=== PATIENT | female | born 1930 | race African-American/Black ===

== ENCOUNTER → 2018-03-20 | Outpatient (CLI) | payer OTHER, SELFPAY ==
[~2018-03-20] MED LIST: ALENDRONATE SOD70 MG PO; ASPIR 8181 MG PO; BRILINTA90 MG PO; CARDIZEM CD120 MG PO; HYDROCHLOROTH12.5 M1 PO; LEVOTHYROXIN0.075 MG PO; LISINOPRIL20 MG PO; METOPROLOL TART25 MG PO; NITROGLYCERIN0.4 MG SUBLING; PLAVIX 75 MG TA75 M1 PO; PRAVACHOL40 MG PO; TYLENOL325 MG PO; VITAMIN D1000 UNI1 PO
== END ==
LOC: M.ULTRA 08:32
DX: G45.9 Transient cerebral ischemic attack, unspecified (principal); R09.89 Other specified symptoms and signs involving the circulatory and respiratory systems

== ENCOUNTER → 2018-03-26 | Outpatient (CLI) | payer OTHER, SELFPAY | LOC: M.RAD 16:39 | DX: J98.11 Atelectasis (principal); R05 Cough ==

== ENCOUNTER → 2018-10-25 | Outpatient (CLI) | payer OTHER, SELFPAY | LOC: M.RAD 13:06 | DX: I51.7 Cardiomegaly (principal); J98.4 Other disorders of lung ==

== ENCOUNTER → 2019-08-23 | Outpatient (CLI) | payer OTHER | LOC: M.RAD 12:00 | DX: I51.7 Cardiomegaly (principal) ==

== ENCOUNTER → 2020-05-04 | Outpatient (CLI) | payer OTHER | LOC: M.ULTRA 09:40 | PROVIDERS: ATTEND Family Medicine | DX: I51.7 Cardiomegaly (principal); J84.9 Interstitial pulmonary disease, unspecified; R22.2 Localized swelling, mass and lump, trunk; Z87.891 Personal history of nicotine dependence ==

== ENCOUNTER → 2020-07-23 | Outpatient (CLI) | payer OTHER | LOC: M.ULTRA 09:00 | PROVIDERS: ATTEND Internal Medicine Cardiovascular Disease | DX: I65.23 Occlusion and stenosis of bilateral carotid arteries (principal) ==

== ENCOUNTER 2021-01-27 12:06 | Emergency (ER) | payer OTHER ==
[~2021-01-27] VITALS: Ht 152.4 cm; Wt 54.4 kg
[2021-01-27] MEDS ORDERED: CARVEDILOL25 MG PO (12:18)
[2021-01-27] MEDS ORDERED: NORVASC5 MG PO (12:18)
[2021-01-27] MEDS ORDERED: HYDRALAZINE 2525 MG PO (12:19)
[2021-01-27] MEDS ORDERED: IMDUR 60 MG TAB60 M1 PO (12:19)
[2021-01-27] MEDS ORDERED: LISINOPRIL-HCT1 EAC1 PO (12:20)
[2021-01-27 12:43] LABS: ABSOLUTE BASOPHILS 0.1 thou/uL (0.0-0.2); ABSOLUTE EOSINOPHILS 0.2 thou/uL (0.0-0.7); ABSOLUTE LYMPHOCYTES 1.7 thou/uL (0.8-5.3); ABSOLUTE NEUTROPHILS 7.7 thou/uL (1.6-8.1); BASOPHILS 0.6 %; EOSINOPHILS 1.9 %; HEMATOCRIT 32.6 % (37.0-47.0); HEMOGLOBIN 11.1 gm/dL (12.0-15.0); LYMPHOCYTES 15.7 %; MCH 30.6 pg (26.0-34.0); MCHC 33.9 g/dL (28.0-37.0); MCV 90.3 fL (80.0-100.0); MONOCYTES 9.7 %; MPV 7.8 fl. (7.2-11.1); NUCLEATED RBCS 0 /100WBC; PLATELET COUNT* 253 thou/uL (150-400); POLYS 72.1 %; RBC 3.61 mil/uL (4.20-5.00); RDW-CV 15.1 % (10.5-14.5); WBC 10.7 thou/uL (4.0-11.0)
[2021-01-27 12:57] LABS: CALCIUM 9.6 mg/dL (8.5-10.1); CREATININE 1.4 mg/dL (0.6-1.3); POTASSIUM 4.1 mmol/L (3.5-5.1)
[2021-01-27 13:01] LABS: ALBUMIN 3.7 g/dL (3.4-5.0); TOTAL BILIRUBIN 0.4 mg/dL (<0.1-1.0); TOTAL PROTEIN 7.8 g/dL (6.4-8.2)
--- NOTE | 2021-01-27 15:35 | EKG ---
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1930 Requested By: Eleuterio Gaspar Order Number: [id number] MD: Roberto Webster Measurements Intervals [place] Rate: 54 P: 67 PA: 191 QRS: -7 QRSD: 90 T: 35 QT: 438 QTc: 416 Interpretive Statements Sinus rhythm Probable left atrial enlargement Probable left ventricular hypertrophy Baseline wander in lead(s) II Compared to ECG 05/03/2017 12:43:47 No significant changes Electronically Signed On 01-27-2021 15:35:07 CDT by Roberto Webster [email or web address] <ELECTRONICALLY SIGNED> By: Roberto Webster MD, [facility] 01/27/21 1535 1232 1232 Roberto Webster MD, [facility] /EPI
[2021-01-27 15:41] LABS: URINE BILIRUBIN NEGATIVE (Negative); URINE BLOOD NEGATIVE (Negative); URINE CLARITY CLEAR; URINE COLOR YELLOW; URINE GLUCOSE-RANDOM NEGATIVE (Negative); URINE KETONES NEGATIVE (Negative); URINE LEUKOCYTES-REFLEX NEGATIVE (Negative); URINE NITRITE-REFLEX NEGATIVE (Negative); URINE PROTEIN NEGATIVE (Negative); URINE UROBILINOGEN 0.2 E.U./dl (0.2-1.0)
[2021-01-27 16:23] VITALS: BP 172/55
== END 2021-01-27 16:24 | disposition home or self-care (01) ==
LOC: M.ERS 12:06
PROVIDERS: Nurse Practitioner Psychiatric/Mental Health
DX: S01.91XA Laceration without foreign body of unspecified part of head, initial encounter (principal); I10 Essential (primary) hypertension; E11.9 Type 2 diabetes mellitus without complications; E78.5 Hyperlipidemia, unspecified; Z90.710 Acquired absence of both cervix and uterus; Z90.49 Acquired absence of other specified parts of digestive tract; Z95.1 Presence of aortocoronary bypass graft; Z79.82 Long term (current) use of aspirin; Z79.899 Other long term (current) drug therapy; W01.0XXA Fall on same level from slipping, tripping and stumbling without subsequent striking against object, initial encounter; Y93.89 Activity, other specified; Y92.89 Other specified places as the place of occurrence of the external cause; Y99.8 Other external cause status

== ENCOUNTER → 2021-04-19 | Outpatient (CLI) | payer OTHER ==
[~2021-04-19] MED LIST changes: +CARVEDILOL25 MG PO; +HYDRALAZINE 2525 MG PO; +IMDUR 60 MG TAB60 M1 PO; +LISINOPRIL-HCT1 EAC1 PO; +NORVASC5 MG PO
--- NOTE | 2021-04-19 15:49 | 2DMMODE ---
[place] [address] 2 D/M-MODE ECHOCARDIOGRAM Name: FRANCES PRESSLEY Room: [facility]#: [id number] Admission: 04/19/21 Attend Phys: Lisa Hall RN Discharge: Date of : 34 Date of Service: 04/19/21 1549 Report #: [id number] THIS REPORT FOR: cc: Jaycee Barriga MD, Katrina MD Blick,Tavon Grace MD [facility] ~ APPROVED REPORT Study performed: 04/19/2021 14:06:27 EXAM: Comprehensive 2D, Doppler, and color-flow Echocardiogram BSA: 1.48 HR: 58 bpm BP: 122/70 mmHg Other Information Study Quality: Adequate Technically limited study due to body habitus. Indications Assess Ejection Fraction 2D Dimensions IVSd: 12.34 (7-11mm) LVOT Diam: 19.75 (18-24mm) LVDd: 42.40 mm PWd: 10.87 (7-11mm) Ascending Ao: 27.45 (22-36mm) LVDs: 29.13 (25-40mm) Aortic Root: 27.01 mm Volumes Left Atrial Volume (Systole) LA ESV Index: 28.10 mL/m2 Aortic Valve AoV Peak Noé.: 1.55 m/s AO Peak Gr.: 9.59 mmHg LVOT Max P.79 mmHg AO Mean Gr.: 5.87 mmHg LVOT Mean P.53 mmHg LVOT Max V: 1.09 m/s AO V2 VTI: 40.15 cm LVOT Mean V: 0.74 m/s TAMARA (VTI): 2.06 cm2 LVOT V1 VTI: 27.04 cm Mitral Valve E/A Ratio: 0.82 [place] [address] 2 D/M-MODE ECHOCARDIOGRAM Name: FRANCES PRESSLEY Room: [facility]#: [id number] Admission: 04/19/21 Attend Phys: Lisa Hall RN Discharge: Date of : 34 Date of Service: 04/19/21 1549 Report #: [id number] MV Decel. Time: 362.59 ms MV E Max Noé.: 0.73 m/s MV PHT: 105.15 ms MVA (PHT): 2.09 cm2 TDI E/Lateral E': 14.60 E/Medial E': 12.17 Medial E' Noé.: 0.06 m/s Lateral E' Noé.: 0.05 m/s Pulmonary Valve PV Peak Noé.: 1.05 m/s PV Peak Gr.: 4.40 mmHg Tricuspid Valve RAP Estimate: 5.00 mmHg TR Peak Gr.: 32.53 mmHg RVSP: 37.53 mmHg PA Pressure: 37.53 mmHg Left Ventricle The left ventricle is normal size. There is normal LV segmental wall motion. There is normal left ventricular wall thickness. Left ventricular systolic function is normal. The left ventricular ejection fraction is within the normal range. LVEF is 60-65%. Grade I - abnormal relaxation pattern. Right Ventricle The right ventricle is normal size. The right ventricular systolic function is normal. Atria The left atrium size is normal. The right atrium size is normal. Aortic Valve The Aortic valve is sclerotic. No aortic regurgitation is present. There is no aortic valvular stenosis. Mitral Valve The mitral valve is normal in structure. There is trace mitral valve regurgitation noted. No evidence of mitral valve stenosis. Tricuspid Valve The tricuspid valve is normal in structure. Trace tricuspid regurgitation estimated pa pressure 40 [place] [address] 2 D/M-MODE ECHOCARDIOGRAM Name: [facility] Room: [facility]#: [id number] Admission: 04/19/21 Attend Phys: Lisa Hall RN Discharge: Date of : 32 Date of Service: 04/19/21 1549 Report #: [id number] The pulmonary valve is normal in structure. There is no pulmonic valvular regurgitation. Great Vessels The aortic root is normal in size. Aortic arch is not well visualized. IVC is normal in size and collapses >50% with inspiration. Pericardium There is no pericardial effusion. <Conclusion> LVEF is 60-65%. The Aortic valve is sclerotic. There is trace mitral valve regurgitation noted. Trace tricuspid regurgitation estimated pa pressure 40 mm Hg <ELECTRONICALLY SIGNED> By: Tavon Resendiz MD, FACC 04/19/21 1549 1549 1549 Tavon Resendiz MD, FACC /INF
== END ==
LOC: M.CRD 14:00
PROVIDERS: ATTEND Registered Nurse
DX: R01.1 Cardiac murmur, unspecified (principal)

== ENCOUNTER 2021-06-10 11:30 | Inpatient (IN) | payer OTHER ==
[~2021-06-10] VITALS: Ht 149.9 cm; Wt 49.8 kg
--- NOTE | ~2021-06-10 | PROC ---
[facility] [address] [place] [address] PROCEDURE REPORT Name: FRANCES PRESSLEY Room: [address] IN M.R.#: [id number] Admission: 06/10/21 Attend Phys: Delicia Xiong Discharge: 06/20/21 Date of : 32 Report #: [id number] THIS REPORT FOR: cc: Jaycee Barriga MD, Katrina MD [facility],Medical Records Staff ~ For GI report, please see the Provation report in Perceptive 7 content. By: 0650Medical Records Staff [facility] /XOCHILT
--- NOTE | ~2021-06-10 | PROC ---
[facility] [address] [place] [address] PROCEDURE REPORT Name: FRANCES PRESSLEY Room: [address] IN M.R.#: [id number] Admission: 06/10/21 Attend Phys: Delicia iXong Discharge: Date of : 32 Report #: [id number] THIS REPORT FOR: cc: Jaycee Barriga MD, Katrina MD [facility],Medical Records Staff ~ For GI report, please see the Provation report in Perceptive 7 content. By: 0652Medical Records Staff JOSÉ /XOCHILT
--- NOTE | ~2021-06-10 | CON ---
[address] [address] CONSULTATION Name: FRANCES PRESSLEY Room: [address] ADM IN M.R.#: [id number] Admission: 06/10/21 Attend Phys: Delicia Xiong Discharge: Date of : 32 Report #: [id number] THIS REPORT FOR: cc: Jaycee Barriga MD, Katrina MD Namin, Farid M. MD ~ cc: Jaycee Barriga MD DATE OF CONSULTATION: 06/11/2021 Please note at the time of this dictation, the patient was seen and physically examined by myself. REASON FOR CONSULTATION: Anemia. HISTORY OF PRESENT ILLNESS: This is an 89-year-old female who was instructed by her PCP after getting her labs back, in which she had a hemoglobin of 7.8. She was instructed to come to the Emergency Room. It appears back in January of this year, her hemoglobin was 11.9. The patient did admit that she has been having some mild fatigue. She denies any nausea, vomiting or any abdominal pain. No difficulty swallowing. She states her bowels move every 2-3 days. She does not take anything for them and she has not noticed any bright red blood or any melanotic stool. In asking the patient if she has ever had EGD or colonoscopies done in the past, she does not recall having any. ALLERGIES: No known drug allergies. MEDICATIONS FROM HOME: Showed baby aspirin daily, Synthroid, Pravachol, Nitrostat, Tylenol, Norvasc, Coreg, hydralazine, amiodarone, lisinopril and alendronate. PAST MEDICAL HISTORY: Hyperlipidemia, hypertension, diabetes, history of SVT, hernia. PAST SURGICAL HISTORY: Appendectomy, cataract removal. She had a stent placed a couple of weeks ago. FAMILY HISTORY: Noncontributory. SOCIAL HISTORY: She lives with her daughter. Denies any alcohol, tobacco or illegal drug use. REVIEW OF SYSTEMS: Twelve-point review of systems is essentially negative except what is [place] [address] CONSULTATION Name: FRANCES PRESSLEY Room: [address] IN [facility]#: [id number] Admission: 06/10/21 Attend Phys: Delicia Xiong Discharge: Date of : 32 Report #: [id number] PHYSICAL EXAMINATION: VITAL SIGNS: Temperature 36.8, pulse 62, respirations 18, blood pressure 176/62. HEART: Regular rate and rhythm. LUNGS: Diminished, but clear. ABDOMEN: Soft, positive bowel sounds in all 4 quadrants with no masses or tenderness noted. LABORATORY DATA: Hemoglobin on admission was 7.9, she is 7 this morning. White count 19, platelet is 440. BUN on admission was 40, she is down to 31. Creatinine is 2 with a GFR of 28. LFTs are normal. B12 noted on her paperwork from her PCP's office was 440. Chest x-ray: Cardiomegaly and mild interstitial edema. IMPRESSION: 1. Acute on chronic anemia. 2. Leukocytosis. 3. Fatigue. 4. Chronic kidney disease. 5. Diabetes. PLAN: 1. Obtain labs, iron studies, ferritin, and soluble transferrin receptor. 2. Clear liquids. 3. We will give her some Dulcolax tablets 20 mg now. 4. Timing when EGD and colonoscopy to be performed will be determined by Dr. Cardozo. 5. Transfuse to keep hemoglobin greater than 7. 6. Further recommendations to be made after Dr. Cardozo sees the patient later today. Thank you for allowing us to participate in this patient's care. Please do not hesitate to call with any questions regarding this consult. By: 0821 [id number] Cardozo MD /nt
[2021-06-10 11:46] VITALS: BP 157/54
[2021-06-10 14:25] LABS: ABSOLUTE BASOPHILS 0.1 thou/uL (0.0-0.2); ABSOLUTE EOSINOPHILS 0.3 thou/uL (0.0-0.7); ABSOLUTE LYMPHOCYTES 1.7 thou/uL (0.8-5.3); ABSOLUTE MONOCYTES 1.4 thou/uL (0.0-1.2); ABSOLUTE NEUTROPHILS 11.4 thou/uL (1.6-8.1); BASOPHILS 0.8 %; EOSINOPHILS 2.3 %; HEMATOCRIT 24.4 % (37.0-47.0); HEMOGLOBIN 7.9 gm/dL (12.0-15.0); LYMPHOCYTES 11.5 %; MCHC 32.2 g/dL (28.0-37.0); MONOCYTES 9.2 %; MPV 6.7 fl. (7.2-11.1); NUCLEATED RBCS 0 /100WBC; PLATELET COUNT* 440 thou/uL (150-400); POLYS 76.2 %; RDW-CV 15.5 % (10.5-14.5); WBC 14.9 thou/uL (4.0-11.0)
[2021-06-10 14:35] LABS: CALCIUM 9.4 mg/dL (8.5-10.1); CREATININE 2.4 mg/dL (0.6-1.3); POTASSIUM 3.7 mmol/L (3.5-5.1)
[2021-06-10 14:38] LABS: PROTIME 10.9 Seconds (9.20-11.50)
[2021-06-10 14:40] LABS: ALBUMIN 3.1 g/dL (3.4-5.0); TOTAL BILIRUBIN 0.7 mg/dL (<0.1-1.0); TOTAL PROTEIN 8.1 g/dL (6.4-8.2)
--- NOTE | 2021-06-10 15:35 | EKG ---
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1930 Requested By: Kenya Velez Order Number: [id number] MD: Tavon Resendiz Measurements Intervals [place] Rate: 57 P: 52 [place]: 165 QRS: 9 QRSD: 96 T: -23 QT: 480 QTc: 468 Interpretive Statements Sinus rhythm artifact noted Probable left atrial enlargement Borderline repolarization abnormality Compared to ECG 01/27/2021 12:32:21 No significant changes Electronically Signed On 06-10-2021 15:35:37 CDT by Tavon Resendiz [email or web address] <ELECTRONICALLY SIGNED> By: Tavon Resendiz MD, FACC 06/10/21 1535 1501 1501 Tavon Resendiz MD, [facility] /EPI
[2021-06-10 20:17] VITALS: BP 181/62
[2021-06-10 21:00] VITALS: BP 176/62
[2021-06-11 07:30] VITALS: BP 176/57
[2021-06-11 08:22] LABS: HEMATOCRIT 22.3 % (37.0-47.0); MCH 27.4 pg (26.0-34.0); MCHC 31.4 g/dL (28.0-37.0); MCV 87.3 fL (80.0-100.0); RBC 2.56 mil/uL (4.20-5.00); RDW-CV 14.9 % (10.5-14.5)
[2021-06-11 08:37] LABS: CALCIUM 8.2 mg/dL (8.5-10.1); POTASSIUM 3.3 mmol/L (3.5-5.1)
[2021-06-11 11:38] LABS: URINE BILIRUBIN NEGATIVE (Negative); URINE BLOOD 2+ (Negative); URINE CLARITY CLEAR; URINE COLOR YELLOW; URINE GLUCOSE-RANDOM NEGATIVE (Negative); URINE KETONES NEGATIVE (Negative); URINE LEUKOCYTES NEGATIVE (Negative); URINE NITRITE NEGATIVE (Negative); URINE PROTEIN 2+ (Negative); URINE SPECIFIC GRAVITY 1.015 (1.005-1.030)
[2021-06-11 11:46] LABS: BACTERIA 1-9 Few /HPF (None Seen); SQUAMOUS 0-3 Few /LPF (0-3); URINE RBC 3-10 Few /HPF (0-2); URINE WBC 0-5 Rare /HPF (0-5)
[2021-06-11 11:49] LABS: CASTS None Seen /LPF (None Seen); CRYSTALS None Seen /LPF (None Seen); MUCUS 0-3 Light strn/LPF (None Seen)
[2021-06-11 16:45] VITALS: BP 153/45
[2021-06-11 19:45] VITALS: BP 164/55
[2021-06-12] VITALS (10 sets, daily range): BP systolic 126–160; BP diastolic 48–67
[2021-06-12 03:13] LABS: MCH 27.8 pg (26.0-34.0); RBC 2.25 mil/uL (4.20-5.00); RDW-CV 14.9 % (10.5-14.5); WBC 26.3 thou/uL (4.0-11.0)
[2021-06-12 03:20] LABS: HEMATOCRIT 19.6 % (37.0-47.0); HEMOGLOBIN 6.3 gm/dL (12.0-15.0)
[2021-06-12 03:43] LABS: ALBUMIN 2.1 g/dL (3.4-5.0); CALCIUM 7.8 mg/dL (8.5-10.1); CREATININE 2.2 mg/dL (0.6-1.3); POTASSIUM 3.2 mmol/L (3.5-5.1); TOTAL BILIRUBIN 0.7 mg/dL (<0.1-1.0); TOTAL PROTEIN 6.1 g/dL (6.4-8.2)
[2021-06-12 17:25] LABS: HEMATOCRIT 23.8 % (37.0-47.0); HEMOGLOBIN 7.8 gm/dL (12.0-15.0)
[2021-06-13 00:30] VITALS: BP 137/48
[2021-06-13 04:14] VITALS: BP 145/56
[2021-06-13 06:09] LABS: HEMATOCRIT 22.5 % (37.0-47.0); HEMOGLOBIN 7.4 gm/dL (12.0-15.0); MCH 28.6 pg (26.0-34.0); MCHC 32.9 g/dL (28.0-37.0); MCV 86.7 fL (80.0-100.0); MPV 7.5 fl. (7.2-11.1); RBC 2.59 mil/uL (4.20-5.00); WBC 18.5 thou/uL (4.0-11.0)
[2021-06-13 06:15] LABS: CALCIUM 7.6 mg/dL (8.5-10.1); CREATININE 2.4 mg/dL (0.6-1.3); MAGNESIUM 1.4 mg/dL (1.8-2.4); POTASSIUM 4.1 mmol/L (3.5-5.1); TOTAL BILIRUBIN 0.7 mg/dL (<0.1-1.0)
[2021-06-13 07:45] VITALS: BP 155/56
[2021-06-13 16:00] VITALS: BP 122/48
[2021-06-13 21:30] VITALS: BP 167/60
[2021-06-14 04:59] LABS: HEMATOCRIT 25.6 % (37.0-47.0); HEMOGLOBIN 8.3 gm/dL (12.0-15.0); MCH 28.1 pg (26.0-34.0); MCHC 32.3 g/dL (28.0-37.0); MCV 87.1 fL (80.0-100.0); MPV 6.9 fl. (7.2-11.1); RBC 2.94 mil/uL (4.20-5.00); RDW-CV 15.4 % (10.5-14.5); WBC 19.8 thou/uL (4.0-11.0)
[2021-06-14 05:07] LABS: CALCIUM 7.8 mg/dL (8.5-10.1); CREATININE 2.2 mg/dL (0.6-1.3); MAGNESIUM 1.4 mg/dL (1.8-2.4); POTASSIUM 3.3 mmol/L (3.5-5.1)
[2021-06-14 08:10] VITALS: BP 176/65
[2021-06-14 12:41] LABS: MAGNESIUM 1.5 mg/dL (1.8-2.4)
[2021-06-14 12:48] LABS: POTASSIUM 4.7 mmol/L (3.5-5.1)
[2021-06-14 16:00] VITALS: BP 169/67
[2021-06-14 20:30] VITALS: BP 188/72
[2021-06-15 00:14] VITALS: BP 171/67
[2021-06-15 08:00] VITALS: BP 169/63
[2021-06-15 15:31] VITALS: BP 127/57
[2021-06-15 20:00] VITALS: BP 147/60
[2021-06-16 05:19] LABS: MCH 28.6 pg (26.0-34.0); MCV 86.7 fL (80.0-100.0); MPV 7.3 fl. (7.2-11.1); RBC 2.03 mil/uL (4.20-5.00); RDW-CV 15.7 % (10.5-14.5)
[2021-06-16 05:36] LABS: ALBUMIN 2.3 g/dL (3.4-5.0); CALCIUM 8.4 mg/dL (8.5-10.1); CREATININE 2.2 mg/dL (0.6-1.3); MAGNESIUM 1.9 mg/dL (1.8-2.4); POTASSIUM 3.3 mmol/L (3.5-5.1); TOTAL BILIRUBIN 0.6 mg/dL (<0.1-1.0); TOTAL PROTEIN 6.3 g/dL (6.4-8.2)
[2021-06-16 05:39] LABS: HEMOGLOBIN 5.8 gm/dL (12.0-15.0)
[2021-06-16 05:42] LABS: HEMATOCRIT 17.6 % (37.0-47.0)
[2021-06-16 07:33] LABS: HEMOGLOBIN 5.8 gm/dL (12.0-15.0)
[2021-06-16 08:02] VITALS: BP 152/55
--- NOTE | 2021-06-16 12:07 | PATH ---
[address] [address] PATHOLOGY RPT PROCEDURE Name: WENDIEFRANCESETHAN VASQUEZ Room: [address] IN M.R.#: [id number] Admission: 06/10/21 Date of : 32 Discharge: Report #: [id number] Path Case #: [id number] [facility] Accession Number: [id number] . 01 Material submitted: . duodenum - DUODENAL BIOPSY TO R/O CELIAC . 01 Clinical history: . EGD IN OR ACUTE RENAL FAILURE . 02 Diagnosis: Duodenal biopsy: - Mild nonspecific active duodenitis without significant intraepithelial lymphocytosis or villous atrophy, negative for granulomas, viral inclusions and dysplasia. See comment. (GRIFFIN:dina; 06/15/2021) [facility]BR 06/15/2021 1106 Local . 02 Comment: Because there is no significant intraepithelial lymphocytosis or villous atrophy, celiac disease is thought to be unlikely. 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 02 Electronically signed: . Ruben Cruz MD, Pathologist NPI- [id number] . 01 Gross description: . The specimen is received in formalin, labeled "Frances Quintana, duodenal BX". Received are 5 segments of pale jacobson tissue ranging in size from 0.3 to 0.5 cm in maximum dimensions. The specimen is submitted entirely in cassette A1.([facility]; 06/14/2021) [facility] 06/14/2021 [facility]8 Local . 02 Pathologist provided ICD-10: K29.80 . 02 CPT . 836864 Specimen Comment: A courtesy copy of this report has been sent to [phone] Specimen Comment: [phone], Specimen Comment: Report sent to , DR FELDMAN / DR IYER Specimen Comment: A duplicate report has been generated due to demographic updates. Performed at: 01 [place] [address] PATHOLOGY RPT PROCEDURE Name: FRANCES QUINTANA Room: [address] IN M.R.#: [id number] Admission: 06/10/21 Date of : 32 Discharge: Report #: [id number] Path Case #: [id number] [address] [facility] [address], [place] [id number] MD Kobe Villafana MD Phone: [phone] Performed at: 02 [facility] [address], [place], [place] [id number] MD Ruben Cruz MD Phone: [phone]
--- NOTE | 2021-06-16 13:34 | EKG ---
[place] [address] ELECTROCARDIOGRAM REPORT Name: FRANCES PRESSLEY CHRISTINA Room: [address] ADM IN M.R.#: [id number] Admission: 06/10/21 Attend Phys: Reji Corrales Discharge: Date of : 34 Date of Service: 06/16/21 1250 Report #: [id number] THIS REPORT FOR: //name// 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 : 1930 Requested By: Claudia Casey Order Number: [id number] Reading MD: Tavon Resendiz Measurements Intervals [place] Rate: 76 P: 60 MS: 163 QRS: 2 QRSD: 91 T: 20 QT: 407 QTc: 458 Interpretive Statements Sinus rhythm Probable left atrial enlargement Nonspecific repol abnormality, diffuse leads Artifact in lead(s) I,II,III,aVR,aVL,aVF,V1,V2,V3,V4,V5,V6 Compared to ECG 06/10/2021 15:01:58 No significant changes Electronically Signed On 06-16-2021 13:34:29 CDT by Tavon Resendiz [email or web address] <ELECTRONICALLY SIGNED> By: Tavon Resendiz MD, [facility] 06/16/21 1334 1250 1250 Tavon Resendiz MD, [facility] /EPI
[2021-06-16 13:45] LABS: CALCIUM 8.5 mg/dL (8.5-10.1); CREATININE 2.3 mg/dL (0.6-1.3); POTASSIUM 3.7 mmol/L (3.5-5.1)
[2021-06-16 14:40] VITALS: BP 134/50
[2021-06-16 15:03] VITALS: BP 132/45; BP 139/50
--- NOTE | 2021-06-16 15:33 | 2DMMODE ---
[place] [address] 2 D/M-MODE ECHOCARDIOGRAM Name: FRANCES PRESSLEY Room: [address] IN .[place].#: [id number] Admission: 06/10/21 Attend Phys: Reji Corrales Discharge: Date of : 34 Date of Service: 06/16/21 1533 Report #: [id number] THIS REPORT FOR: cc: Jaycee Barriga MD, Katrina MD Blick,Tavon Grace MD [facility] ~ APPROVED REPORT Study performed: 06/16/2021 14:42:52 EXAM: Comprehensive 2D, Doppler, and color-flow Echocardiogram Patient Location: In-Patient Room #: 304 Status: routine BSA: 1.45 HR: 77 bpm BP: 152/55 mmHg Rhythm: NSR Other Information Study Quality: Good Indications Congestive Heart Failure 2D Dimensions IVSd: 11.30 (7-11mm) LVOT Diam: 18.63 (18-24mm) LVDd: 37.80 mm PWd: 11.75 (7-11mm) Ascending Ao: 24.56 (22-36mm) LVDs: 15.42 (25-40mm) Aortic Root: 29.07 mm Volumes Left Atrial Volume (Systole) LA ESV Index: 31.50 mL/m2 Aortic Valve AoV Peak Noé.: 1.57 m/s AO Peak Gr.: 9.87 mmHg LVOT Max P.94 mmHg AO Mean Gr.: 5.45 mmHg LVOT Mean P.70 mmHg LVOT Max V: 1.41 m/s AO V2 VTI: 35.78 cm LVOT Mean V: 0.88 m/s TAMARA (VTI): 2.51 cm2 LVOT V1 VTI: 32.89 [place] [address] 2 D/M-MODE ECHOCARDIOGRAM Name: FRANCES PRESSLEY Room: [address] IN ..#: [id number] Admission: 06/10/21 Attend Phys: Reji Corrales Discharge: Date of : 32 Date of Service: 06/16/21 1533 Report #: [id number] Mitral Valve E/A Ratio: 0.83 MV Decel. Time: 295.96 ms MV E Max Noé.: 1.00 m/s MV PHT: 85.83 ms MVA (PHT): 2.56 cm2 TDI E/Lateral E': 10.00 E/Medial E': 11.11 Medial E' Noé.: 0.09 m/s Lateral E' Noé.: 0.10 m/s Pulmonary Valve PV Peak Noé.: 1.01 m/s PV Peak Gr.: 4.12 mmHg Tricuspid Valve RAP Estimate: 5.00 mmHg TR Peak Gr.: 26.86 mmHg RVSP: 31.00 mmHg PA Pressure: 31.00 mmHg Left Ventricle The left ventricle is normal size. There is normal LV segmental wall motion. Mild concentric left ventricular hypertrophy. Left ventricular systolic function is normal. The left ventricular ejection fraction is within the normal range. LVEF is >70%. Grade I - abnormal relaxation pattern. Right Ventricle The right ventricle is normal size. The right ventricular systolic function is normal. Atria Left atrium is mildly dilated. The right atrium size is normal. Aortic Valve The aortic valve is normal in structure. No aortic regurgitation is present. There is no aortic valvular stenosis. Mitral Valve The mitral valve is normal in structure. There is no mitral valve regurgitation noted. No evidence of mitral valve stenosis. Tricuspid Valve The tricuspid valve is normal in structure. Trace tricuspid regurgitation. estimated pa pressure 35 [place] [address] 2 D/M-MODE ECHOCARDIOGRAM Name: [facility] CHRISTINA Room: [address] IN [facility]#: [id number] Admission: 06/10/21 Attend Phys: Reji Corrales Discharge: Date of : 34 Date of Service: 06/16/21 1533 Report #: [id number] Pulmonic Valve The pulmonary valve is normal in structure. There is no pulmonic valvular regurgitation. Great Vessels The aortic root is normal in size. IVC is normal in size and collapses >50% with inspiration. Pericardium There is no pericardial effusion. <Conclusion> Mild concentric left ventricular hypertrophy. LVEF is >70%. Left atrium is mildly dilated. Trace tricuspid regurgitation. estimated pa pressure 35 mm Hg <ELECTRONICALLY SIGNED> By: Tavon Resendiz MD, FACC 06/16/21 1533 1533 1533 Tavon Resendiz MD, FACC /INF
[2021-06-16 17:11] VITALS: BP 140/57; BP 152/57; BP 155/70
[2021-06-16 19:44] LABS: HEMATOCRIT 21.5 % (37.0-47.0)
[2021-06-16 20:00] VITALS: BP 153/55
[2021-06-17] VITALS (23 sets, daily range): BP systolic 109–154; BP diastolic 41–59
[2021-06-17 04:39] LABS: MCH 27.6 pg (26.0-34.0); MCV 83.7 fL (80.0-100.0); MPV 7.7 fl. (7.2-11.1); RBC 2.21 mil/uL (4.20-5.00); RDW-CV 17.3 % (10.5-14.5); WBC 22.6 thou/uL (4.0-11.0)
[2021-06-17 05:09] LABS: ALBUMIN 2.2 g/dL (3.4-5.0); CALCIUM 8.5 mg/dL (8.5-10.1); CREATININE 2.5 mg/dL (0.6-1.3); MAGNESIUM 1.7 mg/dL (1.8-2.4); POTASSIUM 3.1 mmol/L (3.5-5.1); TOTAL BILIRUBIN 1.3 mg/dL (<0.1-1.0); TOTAL PROTEIN 6.3 g/dL (6.4-8.2)
[2021-06-17 05:34] LABS: HEMATOCRIT 18.5 % (37.0-47.0); HEMOGLOBIN 6.1 gm/dL (12.0-15.0)
[2021-06-17 09:40] LABS: BE -1.7 mmol/L (-2 to +3); PCO2 32.3 mmHg (35.0-45.0); PO2 70.2 mmHg (75.0-100.0); pH 7.453 (7.340-7.450)
--- NOTE | 2021-06-17 14:25 | CON ---
[address] [address] CONSULTATION Name: FRANCES PRESSLEY Room: [address] ADM IN M.R.#: [id number] Admission: 06/10/21 Attend Phys: Delicia Xiong Discharge: Date of : 32 Report #: [id number] THIS REPORT FOR: cc: Jaycee Barriga MD, Katrina MD Pervez, Adeel MD ~ DATE OF CONSULTATION: 06/17/2021 REQUESTING PHYSICIAN: Arnaldo Montes De Oca MD INDICATION FOR CONSULTATION: Acute hypoxemic respiratory failure. HISTORY OF PRESENT ILLNESS: This is an 89-year-old female whose past medical history includes a history of unvascularized coronary artery disease. She had a tight circumflex lesion on the previous cardiac catheterization, which was not amenable to stenting so the patient's left ventricular ejection fraction however is in fact on the higher side at greater than 70. She has an extensive history of smoking in the past; however, does not have a previous diagnosis of COPD. She does not use any inhalers or oxygen at home. She reports that she has been vaccinated with 2 doses of COVID-19 vaccine. She may have some renal insufficiency. There is a creatinine a few months ago, which was 1.4 and it is possible that this represents her baseline. Her baseline hemoglobin is around 11. At this time, the patient was initially admitted on 06/10, presentation is with abnormal labs at Dr. Marino's office. The patient has been reported to be tired and fatigued and reported to have had essentially no other complaints on initial presentation. The patient was not requiring supplemental oxygen on initial presentation. Her hemoglobin, however, was 7.9 which subsequently dropped down to 6.3. She also was in acute renal failure. Creatinine now at 2.4. The patient since then has been evaluated by GI and has had upper as well as lower GI scopes. It appears that no obvious sign of significant bleeding was found. She has received packed RBCs. There has been a gradual increase in her oxygen needs. She initially started needing oxygen. On 06/14 by this morning, the patient was requiring a heated high-flow nasal cannula to maintain oxygenation. There was also some increased work of breathing. She was tachypneic with respiratory rate around 30 and therefore, she was placed on a BiPAP. Currently, she is on 70% FiO2 on BiPAP. She does have bilateral florid infiltrates or pulmonary edema on chest x-ray. She, however, appears to be comfortable at this time. She is also maintaining blood pressure. Heart rate is in the 60s. She is drowsy. She is arousable, but provides only a limited history. Interestingly, there does not appear to be much swelling of lower extremities. The patient does [place] [address] CONSULTATION Name: FRANCES PRESSLEY Room: [address] IN M.R.#: [id number] Admission: 06/10/21 Attend Phys: Delicia Xiong Discharge: Date of : 32 Report #: [id number] REVIEW OF SYSTEMS: The patient's review of systems for 12 points is negative except as mentioned above; however, the patient's ability to communicate does appear to be limited. PAST MEDICAL AND SURGICAL HISTORY: Coronary artery disease including a significant lesion in the circumflex artery for which a stent placement was not possible and the plan was conservative management. Left ventricular ejection fraction, however, is greater than 70 on recent echo. The right heart pressure of 31. There was creatinine from few months ago which was 1.4, it is possible that is her baseline; hyperlipidemia; hypertension, diabetes; hysterectomy, appendectomy, hernia surgery, cataract surgery and supraventricular tachycardia. SOCIAL HISTORY: There is an extensive history of smoking. She says that she used to smoke for several decades when she was younger, but discontinued about 25 years ago, unable to quantify exactly at this time. No known history of heavy alcohol use or illegal drug use. IMMUNIZATION HISTORY: The patient says that she received 2 doses of COVID-19 vaccine. ALLERGIES: No known drug allergies. CURRENT MEDICATIONS: List in [facility] reviewed. HOME MEDICATIONS: List in [facility] reviewed. FAMILY HISTORY: No pertinent family history known at this time. PHYSICAL EXAMINATION: GENERAL: She is drowsy. She is arousable. VITAL SIGNS: She is on a BiPAP of 12/6 with 70% FiO2. She has good tidal volumes, is saturating 100%, respiratory rate is 21. She had a blood pressure of 143/50 with a heart rate of 65. She is afebrile with a temperature of 36.6. HEENT: Head is normocephalic and atraumatic. Pupils are equal and reactive. There is no throat erythema. Throat examination is limited due to BiPAP. NECK: Does not show raised JVP asymmetry, mass or lymph nodes. CHEST: Symmetrical expansion on inspection and palpation. On auscultation, there are scattered rales throughout bilateral lung camejo. HEART: Regular. There is no murmur. ABDOMEN: Does appear to be significantly distended; however, there does not appear to have significant tenderness. EXTREMITIES: Lower extremities show no edema, no calf tenderness. SKIN: Dry and intact. NEUROLOGIC: Moves all extremities bilaterally equally and spontaneously with no [address] [address] CONSULTATION Name: FRANCES PRESSLEY Room: [address] ADM IN M.R.#: [id number] Admission: 06/10/21 Attend Phys: Delicia Xiong Discharge: Date of : 32 Report #: [id number] focal deficit identified.. LABORATORY DATA:: The patient's chest x-rays are reviewed on the initial chest x-ray from the . There is only mild increase in pulmonary vascular congestion. There is essentially no infiltrate. There is development of florid infiltrate subsequently throughout bilateral lung camejo. The CT of the abdomen and pelvis report also is in [facility] from the and is reviewed. The patient's lab work, which does show significant anemia in [facility] reviewed. Chemistries which do show hypokalemia and hypomagnesemia in addition to acute renal failure in [facility] reviewed. Arterial blood gas in [facility] reviewed, consistent with acute hypoxemic respiratory failure. COVID-19 antigen was negative. ASSESSMENT AND PLAN: 1. Acute hypoxemic respiratory failure, rapid development of infiltrates is consistent with development of pulmonary edema but she has no peripheral edema on exam, which raises the possibility of infiltrates secondary to Transfusion related lung injury and development of ARDS can lead to a similar picture. At this time, the patient appears to be stable on BiPAP, in fact after replacing a central line, which I recommended she has fairly limited peripheral access. We can try to take her off BiPAP while awake; however, I would recommend clarifying code status with the patient's family as if she fails to improve, then she might need endotracheal intubation later. Will start Solumedrol. 2. Anemia. Etiology remains to be defined. The GI service has seen the patient earlier, I understand. Hematology is being consulted today. She is receiving packed RBCs currently. We will repeat labs once these are transfused. 3. Acute renal failure with a possible component of chronic renal insufficiency/fluid overload. I did recommend placement of a central line as above. Also, once her packed RBCs have been transfused, we will repeat labs and see where we stand and at that point, I will be inclined to give her Lasix, possibly with more potassium and magnesium replacement. 4. Abdominal distention. I would go ahead and obtain an x-ray of the abdomen now. Previous notes do not indicate that her abdomen is distended. There is some fecal impaction noted on the previous CT of the abdomen and pelvis; however, she has had a preparation for colonoscopy since then. The patient may benefit from repeating a CT of the abdomen and pelvis. I will review with primary service and I will be inclined to order a CT of the abdomen and pelvis without contrast. 5. Pleural effusions, likely related to fluid overload, these are small in size on the last CT, but I will reevaluate this. If significant pleural effusions seen then she may in fact benefit from thoracentesis. 6. Possible GI bleed. So far, no definite evidence on studies[place] [address] CONSULTATION Name: FRANCES PRESSLEY Room: [address] IN .R.#: [id number] Admission: 06/10/21 Attend Phys: Delicia Xiong Discharge: Date of : 32 Report #: [id number] Protonix. I doubt that she can safely take p.o. at this time. For now, I ordered b.i.d. 40 mg Protonix IV. 7. History of smoking. No definite history of chronic obstructive pulmonary disease . Considering significant hypoxemia, I did go ahead and give her Solu-Medrol as above, we will continue with nebulized bronchodilators. 8. History of unvascularized coronary artery disease, left ventricular ejection fraction normal as above. 9. History of diabetes. 10. History of hypertension. The patient is critically ill at this time. Total time spent providing critical care to this patient today exceeds 50 minutes. <ELECTRONICALLY SIGNED> By: Nick Reyes MD 06/17/21 1425 1039 [id number] Reyes MD /garth
[2021-06-17 14:28] LABS: ABSOLUTE BASOPHILS 0.1 thou/uL (0.0-0.2); ABSOLUTE MONOCYTES 1.9 thou/uL (0.0-1.2); ABSOLUTE NEUTROPHILS 20.3 thou/uL (1.6-8.1); BASOPHILS 0.4 %; LYMPHOCYTES 4.1 %; MCHC 32.5 g/dL (28.0-37.0); MCV 83.1 fL (80.0-100.0); MONOCYTES 8.3 %; MPV 7.6 fl. (7.2-11.1); NUCLEATED RBCS 0 /100WBC; PLATELET COUNT* 205 thou/uL (150-400); POLYS 87.2 %; RBC 2.22 mil/uL (4.20-5.00); RDW-CV 17.5 % (10.5-14.5); WBC 23.3 thou/uL (4.0-11.0)
[2021-06-17 14:31] LABS: HEMATOCRIT 18.5 % (37.0-47.0)
[2021-06-17 14:47] LABS: APTT 35.3 Seconds (25.0-31.3); INR 1.2; PROTIME 12.2 Seconds (9.20-11.50)
[2021-06-17 14:49] LABS: ALBUMIN 2.1 g/dL (3.4-5.0); CALCIUM 8.5 mg/dL (8.5-10.1); CREATININE 2.6 mg/dL (0.6-1.3); MAGNESIUM 1.8 mg/dL (1.8-2.4); PHOSPHORUS* 4.7 mg/dL (2.5-4.9); POTASSIUM 3.7 mmol/L (3.5-5.1); TOTAL BILIRUBIN 1.1 mg/dL (<0.1-1.0); TOTAL PROTEIN 6.2 g/dL (6.4-8.2)
[2021-06-17 20:31] LABS: HEMATOCRIT 25.4 % (37.0-47.0)
[2021-06-17 20:34] LABS: HEMOGLOBIN 8.3 gm/dL (12.0-15.0)
[2021-06-17 20:40] LABS: CALCIUM 8.5 mg/dL (8.5-10.1); CREATININE 2.5 mg/dL (0.6-1.3); MAGNESIUM 2.9 mg/dL (1.8-2.4); POTASSIUM 4.1 mmol/L (3.5-5.1)
[2021-06-18] VITALS (7 sets, daily range): BP systolic 112–158; BP diastolic 44–62
[2021-06-18 05:03] LABS: ABSOLUTE LYMPHOCYTES 0.6 thou/uL (0.8-5.3); ABSOLUTE MONOCYTES 0.5 thou/uL (0.0-1.2); ABSOLUTE NEUTROPHILS 16.1 thou/uL (1.6-8.1); BASOPHILS 0.2 %; HEMATOCRIT 23.5 % (37.0-47.0); HEMOGLOBIN 7.8 gm/dL (12.0-15.0); LYMPHOCYTES 3.2 %; MCH 28.2 pg (26.0-34.0); MCHC 33.4 g/dL (28.0-37.0); MCV 84.7 fL (80.0-100.0); MONOCYTES 2.9 %; MPV 7.9 fl. (7.2-11.1); NUCLEATED RBCS 0 /100WBC; PLATELET COUNT* 179 thou/uL (150-400); POLYS 93.7 %; RBC 2.77 mil/uL (4.20-5.00); RDW-CV 16.7 % (10.5-14.5); WBC 17.2 thou/uL (4.0-11.0)
[2021-06-18 05:20] LABS: ALBUMIN 2.1 g/dL (3.4-5.0); CALCIUM 8.4 mg/dL (8.5-10.1); CREATININE 2.6 mg/dL (0.6-1.3); POTASSIUM 3.6 mmol/L (3.5-5.1); TOTAL BILIRUBIN 1.1 mg/dL (<0.1-1.0); TOTAL PROTEIN 6.4 g/dL (6.4-8.2)
--- NOTE | 2021-06-18 10:08 | PATH ---
[facility] [address] [place] [address] PATHOLOGY RPT PROCEDURE Name: WENDIEFRANCES CHRISTINA Room: [address] IN M.R.#: [id number] Admission: 06/10/21 Date of : 32 Discharge: Report #: [id number] Path Case #: [id number] [facility] Accession Number: [id number] . 01 Material submitted: . PART A: colon - MID TRANSVERSE COLON POLYP. Modifiers: mid, transverse PART B: colon - DESCENDING COLON POLYP. Modifiers: descending . 01 Clinical history: . COLONOSCOPY ACUTE RENAL FAILURE . 02 Diagnosis: A. Mid transverse colon polyp: - Tubular adenoma, negative for high-grade dysplasia. . B. Descending colon polyp: - Benign colonic mucosa suggestive of hyperplastic polyp, negative for high-grade dysplasia. (GRIFFIN:nazario; 06/17/2021) S 06/18/2021 0953 Local . 02 Electronically signed: . Ruben Cruz MD, Pathologist NPI- [id number] . 01 Gross description: . A. The specimen is received in formalin, labeled "Frances Quintana, mid transverse colon polyp". Received is a segment of light jacobson to dark jacobson tissue measuring 0.6 x 0.5 x 0.3 cm in greatest dimensions. The surgical margin is inked. The specimen is sectioned into 2 pieces and entirely submitted in cassette A1. . B. The specimen is received in formalin, labeled "Frances Quintana, descending colon polyp". Received is a segment of pale jacobson tissue measuring 0.3 cm in maximum dimensions. The specimen is submitted entirely in cassette B1.([facility]; 06/16/2021) [facility] 06/16/2021 1105 Local . 02 Pathologist provided ICD-10: D12.3 . 02 CPT . 615113, 316073 Specimen Comment: A courtesy copy of this report has been sent to [phone] Specimen Comment: [phone], Specimen Comment: Report sent to , DR IYER / [place] [address] PATHOLOGY RPT PROCEDURE Name: FRANCES QUINTANA Room: [facility] IN M.R.#: [id number] Admission: 06/10/21 Date of : 32 Discharge: Report #: [id number] Path Case #: [id number] Performed at: 01 [facility] [place] [address] [place] [address] [address], [place], [place] [id number] MD Kobe Villafana MD Phone: [phone] Performed at: [address] [facility] [address] [place] [id number] MD Ruben Cruz MD Phone: [phone]
[2021-06-18 18:22] LABS: HEMATOCRIT 22.1 % (37.0-47.0); HEMOGLOBIN 7.4 gm/dL (12.0-15.0); MCH 28.6 pg (26.0-34.0); MCHC 33.7 g/dL (28.0-37.0); NUCLEATED RBCS 0 /100WBC; PLATELET COUNT* 163 thou/uL (150-400); RDW-CV 17.1 % (10.5-14.5); WBC 16.2 thou/uL (4.0-11.0)
[2021-06-18 18:30] LABS: CALCIUM 8.2 mg/dL (8.5-10.1); CREATININE 2.8 mg/dL (0.6-1.3); MAGNESIUM 2.5 mg/dL (1.8-2.4); POTASSIUM 3.7 mmol/L (3.5-5.1)
[2021-06-18 18:55] LABS: ABSOLUTE LYMPHOCYTES 0.6 thou/uL (0.8-5.3); ABSOLUTE MONOCYTES 0.3 thou/uL (0.0-1.2); ABSOLUTE NEUTROPHILS 15.2 thou/uL (1.6-8.1); PLATELET ESTIMATE ADEQUATE
[2021-06-19] VITALS (16 sets, daily range): BP systolic 121–161; BP diastolic 39–67
[2021-06-19 05:09] LABS: ABSOLUTE LYMPHOCYTES 0.4 thou/uL (0.8-5.3); ABSOLUTE MONOCYTES 0.9 thou/uL (0.0-1.2); ABSOLUTE NEUTROPHILS 16.6 thou/uL (1.6-8.1); BASOPHILS 0.1 %; HEMATOCRIT 20.8 % (37.0-47.0); LYMPHOCYTES 2.2 %; MCH 28.3 pg (26.0-34.0); MCHC 33.6 g/dL (28.0-37.0); MCV 84.3 fL (80.0-100.0); MONOCYTES 5.1 %; MPV 8.1 fl. (7.2-11.1); NUCLEATED RBCS 0 /100WBC; PLATELET COUNT* 158 thou/uL (150-400); POLYS 92.6 %; RBC 2.47 mil/uL (4.20-5.00); RDW-CV 16.8 % (10.5-14.5); WBC 17.9 thou/uL (4.0-11.0)
[2021-06-19 05:20] LABS: ALBUMIN 2.4 g/dL (3.4-5.0); CALCIUM 7.8 mg/dL (8.5-10.1); CREATININE 2.9 mg/dL (0.6-1.3); POTASSIUM 3.3 mmol/L (3.5-5.1); TOTAL BILIRUBIN 1.1 mg/dL (<0.1-1.0); TOTAL PROTEIN 6.2 g/dL (6.4-8.2)
[2021-06-19 11:37] LABS: CALCIUM 7.8 mg/dL (8.5-10.1); CREATININE 3.1 mg/dL (0.6-1.3); POTASSIUM 3.9 mmol/L (3.5-5.1)
[2021-06-19 16:58] LABS: CALCIUM 8.2 mg/dL (8.5-10.1); CREATININE 3.1 mg/dL (0.6-1.3); MAGNESIUM 2.3 mg/dL (1.8-2.4); POTASSIUM 4.2 mmol/L (3.5-5.1)
[2021-06-20] VITALS: BP 142/56
[2021-06-20 01:00] VITALS: BP 147/57
[2021-06-20 02:01] VITALS: BP 153/62
[2021-06-20 03:00] VITALS: BP 148/70
[2021-06-20 03:14] LABS: ABSOLUTE BASOPHILS 0.1 thou/uL (0.0-0.2); ABSOLUTE LYMPHOCYTES 0.4 thou/uL (0.8-5.3); ABSOLUTE MONOCYTES 0.9 thou/uL (0.0-1.2); ABSOLUTE NEUTROPHILS 16.3 thou/uL (1.6-8.1); BASOPHILS 0.3 %; HEMATOCRIT 21.9 % (37.0-47.0); HEMOGLOBIN 7.2 gm/dL (12.0-15.0); LYMPHOCYTES 2.2 %; MCHC 32.9 g/dL (28.0-37.0); MCV 85.3 fL (80.0-100.0); MONOCYTES 5.3 %; MPV 8.4 fl. (7.2-11.1); NUCLEATED RBCS 0 /100WBC; PLATELET COUNT* 125 thou/uL (150-400); POLYS 92.2 %; RBC 2.56 mil/uL (4.20-5.00); RDW-CV 16.7 % (10.5-14.5); WBC 17.6 thou/uL (4.0-11.0)
[2021-06-20 03:34] LABS: ALBUMIN 3.1 g/dL (3.4-5.0); CALCIUM 8.1 mg/dL (8.5-10.1); CREATININE 3.3 mg/dL (0.6-1.3); POTASSIUM 3.6 mmol/L (3.5-5.1); TOTAL BILIRUBIN 1.4 mg/dL (<0.1-1.0); TOTAL PROTEIN 6.9 g/dL (6.4-8.2)
[2021-06-20 04:01] VITALS: BP 162/63
[2021-06-20 05:00] VITALS: BP 166/70
== END 2021-06-20 12:52 | DRG 177 ==
LOC: M.ERS 11:30 → M.TBA-ER 16:09 → M.3W 16:09 → M.2W 16:09 → M.3W 20:50 → M.2W 06-16 13:59 → M.ICU 06-17 09:50
PROVIDERS: Emergency Medicine; Family Medicine; Internal Medicine; Internal Medicine Critical Care Medicine; ADMIT Internal Medicine; ATTEND Internal Medicine
DX: J15.6 Pneumonia due to other Gram-negative bacteria (principal); N17.0 Acute kidney failure with tubular necrosis; J80 Acute respiratory distress syndrome; K57.31 Diverticulosis of large intestine without perforation or abscess with bleeding; E87.1 Hypo-osmolality and hyponatremia; E78.5 Hyperlipidemia, unspecified; I16.0 Hypertensive urgency; J69.0 Pneumonitis due to inhalation of food and vomit; D72.829 Elevated white blood cell count, unspecified; I12.9 Hypertensive chronic kidney disease with stage 1 through stage 4 chronic kidney disease, or unspecified chronic kidney disease; E11.22 Type 2 diabetes mellitus with diabetic chronic kidney disease; I25.10 Atherosclerotic heart disease of native coronary artery without angina pectoris; N18.30 Chronic kidney disease, stage 3 unspecified; K44.9 Diaphragmatic hernia without obstruction or gangrene; D50.9 Iron deficiency anemia, unspecified; D12.4 Benign neoplasm of descending colon; D12.3 Benign neoplasm of transverse colon; K64.4 Residual hemorrhoidal skin tags; E87.70 Fluid overload, unspecified; Z20.822 Contact with and (suspected) exposure to COVID-19; Z66 Do not resuscitate; Z90.710 Acquired absence of both cervix and uterus; Z98.42 Cataract extraction status, left eye; Z98.41 Cataract extraction status, right eye; Z90.49 Acquired absence of other specified parts of digestive tract; Z95.5 Presence of coronary angioplasty implant and graft; Z79.82 Long term (current) use of aspirin; Z79.899 Other long term (current) drug therapy; Z87.891 Personal history of nicotine dependence